=== PATIENT | male | born 1995 | race African-American/Black ===

== ENCOUNTER → 2016-04-26 | Outpatient (CLI) | payer BC, OTHER | END | disposition home or self-care (01) | LOC: C.RDSM 07:35 | PROVIDERS: ATTEND Family Medicine | DX: M25.562 Pain in left knee (principal) ==

== ENCOUNTER → 2016-07-05 | Outpatient (CLI) | payer BC, OTHER ==
--- NOTE | 2016-07-05 20:14 | DIAGNOSTIC IMAGING REPORT ---
MRI OF THE LEFT KNEE WITHOUT CONTRAST CLINICAL HISTORY: Left knee pain and popping sensation. COMPARISON STUDY: Left knee radiographs April 26, 2016. TECHNIQUE: Utilizing a 1.5 Veena magnet and dedicated coil, multiplanar, multiecho imaging of the left knee was performed without intravenous or intraarticular contrast. FINDINGS: Alignment of left knee is anatomic. There is a small joint effusion. A 5 mm abnormality along the lateral femoral condyle shown best on axial image 19 of 30 suggests a tiny loose body. The anterior and posterior cruciate ligaments are intact. The medial collateral ligament and lateral collateral ligament complex are intact. There is no meniscal tear. There is moderate to severe chondrosis of the mid to anterior aspect of the lateral femoral condyle with associated mild subchondral edema. No additional areas of chondrosis are noted. No mass is noted adjacent to the left knee. Patellofemoral alignment is normal. IMPRESSION: 1. Focal high-grade chondrosis of the lateral femoral condyle with mild subchondral edema. This suggests an osteochondral defect/injury. No MRI evidence of instability. 2. Intact cruciate and collateral ligaments. 3. No meniscal tear. 4. Small left knee joint effusion with a suspected 5 mm loose body along the lateral femoral condyle. Electronically signed by: Gerald Majano M.D. 07/05/2016 8:12 PM Dictated Date/Time: 07/05/2016 7:13 PM
== END | disposition home or self-care (01) ==
LOC: C.MRI 16:20
PROVIDERS: ATTEND Orthopaedic Surgery
DX: M25.562 Pain in left knee (principal); M24.10 Other articular cartilage disorders, unspecified site; M25.462 Effusion, left knee

== ENCOUNTER → 2017-06-27 | Outpatient (CLI) | payer BC, OTHER ==
--- NOTE | 2017-06-27 20:11 | DIAGNOSTIC IMAGING REPORT ---
MRI THE RIGHT KNEE NO CONTRAST CLINICAL HISTORY: Right knee pain status post trauma COMPARISON STUDY: No previous studies for comparison. FINDINGS: Imaging was performed the sagittal, coronal, and axial planes. The quadriceps and patellar tendons appear normal. The anterior and posterior cruciate ligaments appear normal. No meniscal tears are visualized. The medial and lateral collateral ligaments appear intact. There is a cartilaginous lesion involving the anterior aspect of the lateral femoral condyle. There is subtle irregularity of the underlying cortex and there is subchondral edema. This is likely posttraumatic. The lesion measures 2.5 cm in greatest diameter. IMPRESSION: 1. Evidence for an osteochondral injury involving the anterior aspect of the lateral femoral condyle. There is cortical and cartilaginous irregularity with subchondral marrow edema. 2. No evidence of meniscal tear 3. No evidence of cruciate or collateral ligament disruption. Electronically signed by: Rishabh Graves M.D. 06/27/2017 8:10 PM Dictated Date/Time: 06/27/2017 8:06 PM
== END | disposition home or self-care (01) ==
LOC: C.MRI 19:21
PROVIDERS: ATTEND Orthopaedic Surgery
DX: M25.461 Effusion, right knee (principal)